=== PATIENT | female | born 1980 | race Caucasian/White ===

== ENCOUNTER → 2019-04-28 | Outpatient (CLI) | payer OTHER | LOC: M.WC 08:00 | DX: E11.621 Type 2 diabetes mellitus with foot ulcer (principal); L97.511 Non-pressure chronic ulcer of other part of right foot limited to breakdown of skin; L84 Corns and callosities; E03.9 Hypothyroidism, unspecified; I10 Essential (primary) hypertension; Z79.4 Long term (current) use of insulin ==

== ENCOUNTER → 2019-05-05 | Outpatient (CLI) | payer OTHER | LOC: M.WC 04:31 | DX: E11.621 Type 2 diabetes mellitus with foot ulcer (principal); L97.511 Non-pressure chronic ulcer of other part of right foot limited to breakdown of skin; E03.9 Hypothyroidism, unspecified; I10 Essential (primary) hypertension; F41.9 Anxiety disorder, unspecified ==

== ENCOUNTER → 2019-05-12 | Outpatient (CLI) | payer OTHER | LOC: M.WC 04:55 | DX: E11.621 Type 2 diabetes mellitus with foot ulcer (principal); L97.511 Non-pressure chronic ulcer of other part of right foot limited to breakdown of skin; E03.9 Hypothyroidism, unspecified; I10 Essential (primary) hypertension; F41.9 Anxiety disorder, unspecified ==

== ENCOUNTER → 2019-05-19 | Outpatient (CLI) | payer OTHER | LOC: M.WC 04:50 | DX: E11.621 Type 2 diabetes mellitus with foot ulcer (principal); L97.518 Non-pressure chronic ulcer of other part of right foot with other specified severity; E03.9 Hypothyroidism, unspecified; I10 Essential (primary) hypertension; F41.9 Anxiety disorder, unspecified ==

== ENCOUNTER 2020-10-21 16:30 | Emergency (ER) | payer OTHER ==
[~2020-10-21] VITALS: Ht 167.6 cm; Wt 147.4 kg
[2020-10-21] MEDS ORDERED: TOUJEO MAX300 UNIT/1 SUBQ ×2 (16:47)
[2020-10-21] MEDS ORDERED: GLYBURIDE 5 MG T5 M1 PO (16:48)
[2020-10-21] MEDS ORDERED: METFORMIN HCL500 M3 PO (16:48)
[2020-10-21] MEDS ORDERED: LEVO-T75 MCG PO (16:48)
[2020-10-21] MEDS ORDERED: DOXYCYCLINE 10100 MG PO (17:17)
[2020-10-21] MEDS ORDERED: CENTANY30 GM TOP (17:17)
[2020-10-21 17:27] VITALS: BP 141/54
== END 2020-10-21 17:28 | disposition home or self-care (01) ==
LOC: M.ERS 16:30
DX: L03.116 Cellulitis of left lower limb (principal); E11.9 Type 2 diabetes mellitus without complications; E03.9 Hypothyroidism, unspecified; Z79.4 Long term (current) use of insulin; Z79.899 Other long term (current) drug therapy

== ENCOUNTER 2020-10-23 06:59 | Inpatient (IN) | payer OTHER ==
[~2020-10-23] VITALS: Ht 167.6 cm; Wt 147.4 kg
--- NOTE | ~2020-10-23 | CON ---
[address] [address] CONSULTATION Name: ANANYA JIMENEZ Room: [address] IN M.R.#: [id number] Admission: 10/23/20 Attend Phys: Jessica Villarreal MD Discharge: 10/26/20 Date of : 84 Report #: [id number] THIS REPORT FOR: cc: Siddharth Carranza Robin L. FNP Hanon, Daniel R. DPM ~ DOC #: [id number] Jamison Jackson DPM DATE OF CONSULTATION: 10/26/2020 CHIEF COMPLAINT: Left diabetic foot ulceration with soft tissue infection that grew group B streptococcus and methicillin-sensitive Staph aureus. HISTORY OF PRESENT ILLNESS: She was on parental antibiotics, plan to discharge today on oral doxycycline 100 mg p.o. b.i.d. We will maintain PICC line to right arm with daily maintenance just in case foot should worsen clinically. The patient has a followup with Dr. Guzman, her diaper folder, next Saturday. She has been afebrile with good appetite. Denies pasha foot pain. LABORATORY DATA: WBC 4.7, RBC 3.98, hemoglobin 12.5, hematocrit 36.4, platelets 265, BUN 9, creatinine 0.4, glucose 127. PHYSICAL EXAMINATION: VITAL SIGNS: Temperature 98.0, pulse 92, respirations 16, blood pressure 169/85. EXTREMITIES: There is a significant decrease in erythema to the left foot periwound. There is no underlying fluctuance or crepitation. There is some red granulation to the medial wound with no expressible drainage. She has palpable dorsalis pedis and posterior tibial pulses. No pain with palpation to the left first MTP joint. IMPRESSION: Resolving soft tissue infection with diabetic foot ulceration, left foot. PLAN: I discussed with Dr. Esparza and the wound care nurse Janak. We will maintain PICC line for one week as discussed. The patient to remain minimally ambulatory in a surgical shoe to the heel with crutches for short distances only. Encouraged to rest, elevate leg, maximize nutrition and glycemic control. TANYA Babb/NITESH/[place] [address] CONSULTATION Name: ANANYA JIMENEZZABETH Room: [address] [facility].#: [id number] Admission: 10/23/20 Attend Phys: Jessica Villarreal MD Discharge: 10/26/20 Date of : 84 Report #: [id number] By: [id number] Jackson DPM /nt
[~2020-10-23 06:59] MED LIST: CENTANY30 GM TOP; DOXYCYCLINE 10100 MG PO; GLYBURIDE 5 MG T5 M1 PO; LEVO-T75 MCG PO; METFORMIN HCL500 M3 PO; TOUJEO MAX300 UNIT/1 SUBQ
[2020-10-23 07:15] VITALS: BP 87/63
[2020-10-23 07:59] LABS: ABSOLUTE EOSINOPHILS 0.1 thou/uL (0.0-0.7); ABSOLUTE LYMPHOCYTES 1.7 thou/uL (0.8-5.3); ABSOLUTE MONOCYTES 0.4 thou/uL (0.0-1.2); ABSOLUTE NEUTROPHILS 5.7 thou/uL (1.6-8.1); BASOPHILS 0.5 %; EOSINOPHILS 1.5 %; HEMATOCRIT 42.6 % (37.0-47.0); HEMOGLOBIN 14.8 gm/dL (12.0-15.0); MCH 31.7 pg (26.0-34.0); MCHC 34.6 g/dL (28.0-37.0); MCV 91.4 fL (80.0-100.0); MONOCYTES 5.6 %; MPV 6.9 fl. (7.2-11.1); NUCLEATED RBCS 0 /100WBC; PLATELET COUNT* 284 thou/uL (150-400); POLYS 71.4 %; RBC 4.66 mil/uL (4.20-5.00); RDW-CV 13.3 % (10.5-14.5)
[2020-10-23 08:12] LABS: CALCIUM 8.6 mg/dL (8.5-10.1); CREATININE 0.6 mg/dL (0.6-1.3); POTASSIUM 4.1 mmol/L (3.5-5.1)
[2020-10-23 08:17] LABS: ALBUMIN 3.2 g/dL (3.4-5.0); TOTAL BILIRUBIN 0.4 mg/dL (<0.1-1.0); TOTAL PROTEIN 7.1 g/dL (6.4-8.2)
[2020-10-23 14:41] VITALS: BP 180/99
[2020-10-23 20:45] VITALS: BP 191/88
[2020-10-23 22:30] VITALS: BP 172/93
[2020-10-24 02:07] LABS: GLYCOHEMOGLOBIN (HGB A1C) 11.1 % (4.8-5.6)
[2020-10-24 04:56] LABS: CALCIUM 8.3 mg/dL (8.5-10.1); CREATININE 0.4 mg/dL (0.6-1.3); POTASSIUM 3.5 mmol/L (3.5-5.1)
[2020-10-24 05:15] LABS: HEMATOCRIT 40.6 % (37.0-47.0); MCH 31.5 pg (26.0-34.0); MCHC 34.4 g/dL (28.0-37.0); MCV 91.6 fL (80.0-100.0); MPV 7.1 fl. (7.2-11.1); RBC 4.44 mil/uL (4.20-5.00); RDW-CV 13.5 % (10.5-14.5); WBC 5.2 thou/uL (4.0-11.0)
[2020-10-24 07:45] VITALS: BP 154/94
[2020-10-24 17:21] VITALS: BP 157/95
[2020-10-24 20:47] VITALS: BP 160/79
[2020-10-25 00:20] VITALS: BP 137/49
[2020-10-25 04:00] VITALS: BP 171/84
[2020-10-25 04:30] LABS: CALCIUM 8.3 mg/dL (8.5-10.1); CREATININE 0.5 mg/dL (0.6-1.3); POTASSIUM 3.4 mmol/L (3.5-5.1)
[2020-10-25 04:36] LABS: HEMATOCRIT 37.8 % (37.0-47.0); HEMOGLOBIN 12.9 gm/dL (12.0-15.0); MCH 31.2 pg (26.0-34.0); MCHC 34.1 g/dL (28.0-37.0); MCV 91.4 fL (80.0-100.0); MPV 6.8 fl. (7.2-11.1); RBC 4.13 mil/uL (4.20-5.00); RDW-CV 13.3 % (10.5-14.5); WBC 5.1 thou/uL (4.0-11.0)
[2020-10-25 07:40] VITALS: BP 158/78
[2020-10-25 16:00] VITALS: BP 190/104
[2020-10-25 19:42] VITALS: BP 169/85
[2020-10-26 04:57] LABS: HEMATOCRIT 36.4 % (37.0-47.0); HEMOGLOBIN 12.5 gm/dL (12.0-15.0); MCH 31.5 pg (26.0-34.0); MCHC 34.4 g/dL (28.0-37.0); MCV 91.6 fL (80.0-100.0); MPV 6.8 fl. (7.2-11.1); RBC 3.98 mil/uL (4.20-5.00); RDW-CV 13.1 % (10.5-14.5); WBC 4.7 thou/uL (4.0-11.0)
[2020-10-26 05:14] LABS: CALCIUM 8.1 mg/dL (8.5-10.1); CREATININE 0.4 mg/dL (0.6-1.3); POTASSIUM 3.4 mmol/L (3.5-5.1)
[2020-10-26 08:00] VITALS: BP 156/91
--- NOTE | 2020-10-26 12:57 | IN ---
[address] [address] INTERIM NOTE Name: ANANYA JIMENEZ Room: [address] IN M.R.#: [id number] Admission: 10/23/20 Attend Phys: Jessica Villarreal MD Discharge: Date of : 84 Report #: [id number] THIS REPORT FOR: cc: Siddharth Carranza Robin L. FNP Hanon, Daniel R. DPM ~ DOC #: [id number] Jamison Jackson DPM DATE OF SERVICE: 10/24/2020 PROGRESS NOTE CHIEF COMPLAINT: Followup of diabetic ulceration, left first MTP with soft tissue infection. SUBJECTIVE: The patient had an MRI today, which was negative for abscess or osteomyelitis. She is on parental vancomycin, ceftriaxone and doxycycline. She has remained afebrile, good appetite, and decreased foot pain. Wound culture pending, shows gram-positive cocci. Blood cultures negative x 2. LABORATORY DATA: WBC 5.2, RBC 4.44, hemoglobin 14.0, hematocrit 40.6, platelets 303; BUN 7, creatinine 0.4, glucose 152, albumin 3.2. OBJECTIVE: VITAL SIGNS: Temperature 97.7, pulse 101, respirations 20, blood pressure 157/95. EXTREMITIES: Left foot was dressed with no drainage noted. Toes were warm with immediate capillary refill. I discussed with nurse, who saw the wound today and relates decreased erythema and edema to the area. The dressing was changed today by the wound care nurse. The patient has no calf pain or popliteal tenderness. No popliteal adenopathy. IMPRESSION: Diabetic foot ulceration with deep soft tissue infection, left foot. PLAN: I will change the bandage tomorrow, may require further bedside debridement. I do not anticipate any surgical debridement based on her MRI findings and clinical improvement. TANYA Babb/[place] [address] INTERIM NOTE Name: ANANYA JIMENEZ Room: [address] IN [facility]#: [id number] Admission: 10/23/20 Attend Phys: Jessica Villarreal MD Discharge: Date of : 84 Report #: [id number] <ELECTRONICALLY SIGNED> By: Jamison Jackson DPM 10/26/20 1257 [id number] Jackson DPM /ryne
--- NOTE | 2020-10-26 12:57 | CON ---
[address] [address] CONSULTATION Name: ANANYA JIMENEZ Room: [address] ADM IN M.R.#: [id number] Admission: 10/23/20 Attend Phys: Jessica Villarreal MD Discharge: Date of : 84 Report #: [id number] THIS REPORT FOR: cc: Siddharth Carranza Robin L. FNP Hanon, Daniel R. DPM ~ DOC #: [id number] Jamison Jackson DPM DATE OF CONSULTATION: 10/25/2020 CHIEF COMPLAINT: Followup of her left diabetic foot ulceration with soft tissue infection. HISTORY OF PRESENT ILLNESS: Wound cultures grew group B streptococcus and methicillin-sensitive Staph aureus. She is on parental vancomycin, ceftriaxone and doxycycline. She relates slight loosening of stools. She has been afebrile, good appetite. She can tell that the swelling has decreased in the foot since she is able to wiggle her toes more. She has remained nonweightbearing to the left foot during her hospital stay. Her hemoglobin A1c is 11.1, which is roughly average blood sugar of 310. LABORATORY DATA: WBC 5.1, RBC 4.13, hemoglobin 12.9, hematocrit 37.8, platelets 287. BUN 9, creatinine 0.5, glucose 109, albumin 3.2. Hemoglobin A1c 11.1. PHYSICAL EXAMINATION: VITAL SIGNS: Temperature 98.5, pulse 81, respirations 18, blood pressure 158/78. EXTREMITIES: There is a substantial decrease in erythema to the left periwound, which is fairly low-grade at this point. The wound to the medial first metatarsal has red granulation with no slough or necrotic tissue. The wound extends to the plantar aspect of the great toe joint with some pale granulation and ____ along the margin. There is no underlying fluctuance or crepitation. Palpable pedal pulses, no signs of acute vascular embarrassment. There is no calf tenderness or popliteal adenopathy noted. Overall infection substantially reduced. IMPRESSION: Type 2 diabetes mellitus, poorly controlled; diabetic foot ulceration with soft tissue infection, left foot. PLAN: The wound was cleansed and redressed with Aquacel AG, ABD, Kerlix and Bhaskar wrap. I will allow partial weightbearing to heel in a surgical shoe with crutches or walker for short distances and transfers. We will order PT for tomorrow. I will follow up with her as an outpatient at [facility] every Saturday afternoon [place] [address] CONSULTATION Name: ANANYA JIMENEZ Room: [address] IN M.R.#: [id number] Admission: 10/23/20 Attend Phys: Jessica Villarreal MD Discharge: Date of : 84 Report #: [id number] TANYA Babb/BERTHA <ELECTRONICALLY SIGNED> By: Jamison Jackson DPM 10/26/20 1257 [id number] Jackson DPM /nt
[2020-10-26 16:54] VITALS: BP 169/85
[2020-10-26 16:59] VITALS: BP 169/85
[2020-10-26 18:17] VITALS: BP 169/85
== END 2020-10-26 17:30 | disposition home or self-care (01) | DRG 872 ==
LOC: M.ERS 06:59 → M.TBA-ER 08:22 → M.ORTHSURG 08:22
PROVIDERS: Emergency Medicine Emergency Medical Services; Internal Medicine; ADMIT Family Medicine; ATTEND Family Medicine
PROC: 02HV33Z Insertion of Infusion Device into Superior Vena Cava, Percutaneous Approach (ICD-10-PCS; principal; 2020-10-25)
PROC: B548ZZA Ultrasonography of Superior Vena Cava, Guidance (ICD-10-PCS; principal; 2020-10-25)
DX: A41.9 Sepsis, unspecified organism (principal); L03.116 Cellulitis of left lower limb; L97.528 Non-pressure chronic ulcer of other part of left foot with other specified severity; E87.1 Hypo-osmolality and hyponatremia; E11.621 Type 2 diabetes mellitus with foot ulcer; E03.9 Hypothyroidism, unspecified; E11.65 Type 2 diabetes mellitus with hyperglycemia; Z20.822 Contact with and (suspected) exposure to COVID-19; Z79.4 Long term (current) use of insulin; Z79.899 Other long term (current) drug therapy